=== PATIENT | female | born 2000 | race Caucasian/White ===

== ENCOUNTER → 2023-10-12 | Emergency (ER) | payer OTHER ==
[~2023-10-12] VITALS: Ht 160 cm; Wt 59.0 kg
== END | disposition home or self-care (01) ==
LOC: ER 07:44
DX: S61.222A Laceration with foreign body of right middle finger without damage to nail, initial encounter (principal); W26.0XXA Contact with knife, initial encounter; Y93.89 Activity, other specified; Y92.89 Other specified places as the place of occurrence of the external cause